=== PATIENT | female | born 2000 | race Caucasian/White ===

== ENCOUNTER 2023-03-25 08:57 | Emergency (ER) | payer OTHER ==
[2023-03-25] MEDS ORDERED: KETOROLAC TROMETHAMINE 30 MG/1 ML VIAL IVPUSH ONE (10:07)
[2023-03-25 10:30] LABS: BASO % 0.2 % (0-2.0); EOS % 2.4 % (0-4.5); HEMATOCRIT 37.5 % (32.4-45.2); HEMOGLOBIN 12.6 GM/dL (10.7-15.3); LYMPH % 31.7 % (8-40); MCH 28.1 pg (25.7-33.7); MCHC 33.6 g/dl (32.0-36.0); MEAN CELL VOLUME 83.4 fl (80-96); MEAN PLT VOLUME 7.5 fl (7.5-11.1); MONO % 10.4 % (3.8-10.2); NEUT % 55.3 % (42.8-82.8); PLATELET COUNT 382 10^3/uL (134-434); RBC 4.49 M/mm3 (3.60-5.2); RDW 12.8 % (11.6-15.6); WHITE BLOOD COUNT 7.5 K/mm3 (4.0-10.0)
[2023-03-25 10:33] LABS: URINE APPEARANCE CLEAR; URINE BILIRUBIN NEGATIVE (NEGATIVE); URINE COLOR YELLOW; URINE GLUCOSE (UA) NEGATIVE (NEGATIVE); URINE KETONE NEGATIVE (NEGATIVE); URINE LEUK ESTERASE NEGATIVE (NEGATIVE); URINE NITRITE NEGATIVE (NEGATIVE); URINE PROTEIN NEGATIVE (NEGATIVE); URINE UROBILINOGEN 0.2 mg/dL (0.2-1.0)
[2023-03-25 10:36] LABS: HCG,QUALITATIVE URINE Negative
[2023-03-25 10:59] LABS: POTASSIUM 4.3 mmol/L (3.5-5.1)
[2023-03-25 11:01] LABS: BLOOD UREA NITROGEN 12.6 mg/dL (7-18); CALCIUM 9.3 mg/dL (8.5-10.1)
[2023-03-25 11:05] LABS: CREATININE 0.5 mg/dL (0.55-1.3)
[2023-03-25 11:06] LABS: BILIRUBIN,TOTAL 0.6 mg/dL (0.2-1)
[2023-03-25 14:09] VITALS: BP 109/67; PULSE 80; RESP 18; TEMP 98.6
== END 2023-03-25 14:41 | disposition home or self-care (01) ==
LOC: JER 08:57
DX: R10.31 Right lower quadrant pain (principal); K59.00 Constipation, unspecified; K50.00 Crohn's disease of small intestine without complications
CPT/HCPCS: 36415; 74177-TC; 80053; 81003; 84703; 85025; 87086; 99285-25; Q9967

== ENCOUNTER 2023-07-22 10:57 | Day surgery (SDC) | payer OTHER ==
[2023-07-22 14:11] VITALS: BP 120/72; PULSE 90; RESP 19; TEMP 98.6
== END 2023-07-22 14:00 | disposition short-term general hospital (02) ==
LOC: FASU-ENDO 10:57
PROVIDERS: ATTEND Internal Medicine Gastroenterology
PROC: 0DJD8ZZ Inspection of Lower Intestinal Tract, Via Natural or Artificial Opening Endoscopic (ICD-10-PCS; principal; 2023-07-22 13:15)
DX: K92.1 Melena (principal); K64.0 First degree hemorrhoids
CPT/HCPCS: 81025

== ENCOUNTER 2023-07-22 14:22 | Observation (INO) | payer OTHER ==
[2023-07-22] MEDS ORDERED: PANTOPRAZOLE SODIUM 40 MG VIAL ONE (15:12)
[2023-07-22 15:21] LABS: INR 1.36 (0.83-1.09); PROTHROMBIN TIME (PATIENT) 15.7 SEC (9.7-13.0)
[2023-07-22 15:24] LABS: ACTIVATED PTT 34.9 SECONDS (25.2-36.5)
[2023-07-22 15:33] LABS: HEMATOCRIT 30.2 % (32.4-45.2); HEMOGLOBIN 10.3 G/dL (10.7-15.3); MCH 28.7 pg (25.7-33.7); MEAN CELL VOLUME 84.5 fl (80-96); MEAN PLT VOLUME 8.5 fl (7.5-11.1); PLATELET COUNT 343.1 10^3/uL (134-434); RBC 3.57 10^6/uL (3.60-5.2); RDW 14.3 % (11.6-15.6); WHITE BLOOD COUNT 7.2 10^3/uL (4.0-10.8)
[2023-07-22 15:41] LABS: ALBUMIN 4.2 g/dl (3.4-5.0); BILIRUBIN,TOTAL 0.7 mg/dl (0.2-1); CALCIUM 9.4 mg/dl (8.5-10.1); CREATININE 0.4 mg/dl (0.6-1.3); POTASSIUM 3.8 mmol/L (3.5-5.1)
[2023-07-22 15:43] LABS: PLATELET ESTIMATE ADEQUATE
[2023-07-22] MEDS: PANTOPRAZOLE SODIUM 40 MG VIAL IVPUSH ONE (15:50)
[2023-07-22 19:02] LABS: HEMATOCRIT 28.4 % (32.4-45.2); HEMOGLOBIN 9.9 G/dL (10.7-15.3); MCH 29.7 pg (25.7-33.7); MCHC 34.7 g/dl (32.0-36.0); MEAN CELL VOLUME 85.4 fl (80-96); MEAN PLT VOLUME 8.5 fl (7.5-11.1); PLATELET COUNT 309.5 10^3/uL (134-434); RBC 3.32 10^6/uL (3.60-5.2); RDW 14.4 % (11.6-15.6)
[2023-07-22 21:56] VITALS: BMI 18.1
[2023-07-23 08:36] VITALS: RESP 14; TEMP 97.5
[2023-07-23 08:53] LABS: CALCIUM 9.1 mg/dl (8.5-10.1); CREATININE 0.4 mg/dl (0.6-1.3); POTASSIUM 3.7 mmol/L (3.5-5.1)
[2023-07-23 10:07] LABS: BASO % 0.3 % (0-2.0); EOS % 1.1 % (0-4.5); HEMATOCRIT 28.7 % (32.4-45.2); HEMOGLOBIN 9.6 GM/dL (10.7-15.3); LYMPH % 17.2 % (8-40); MCH 27.8 pg (25.7-33.7); MCHC 33.3 g/dl (32.0-36.0); MEAN CELL VOLUME 83.6 fl (80-96); MEAN PLT VOLUME 8.7 fl (7.5-11.1); MONO % 12.4 % (3.8-10.2); PLATELET COUNT 346 10^3/uL (134-434); RBC 3.44 M/mm3 (3.60-5.2)
[2023-07-23 13:28] VITALS: BP 106/63; PULSE 97
== END 2023-07-23 15:18 | disposition home or self-care (01) ==
LOC: FER 14:22 → FM/S 21:05
PROVIDERS: ADMIT Internal Medicine; ATTEND Nurse Practitioner Family
PROC: 3E033GC Introduction of Other Therapeutic Substance into Peripheral Vein, Percutaneous Approach (ICD-10-PCS; principal; 2023-07-22)
DX: K91.840 Postprocedural hemorrhage of a digestive system organ or structure following a digestive system procedure (principal); K92.1 Melena; K59.09 Other constipation; K22.5 Diverticulum of esophagus, acquired; K64.9 Unspecified hemorrhoids; N39.9 Disorder of urinary system, unspecified
CPT/HCPCS: 36415; 74174-TC; 80048; 80053; 85025; 85027; 85610; 85730; 86850; 86900; 86901; 96374; 99285-25; G0378

== ENCOUNTER 2023-08-19 12:21 | Day surgery (SDC) | payer OTHER ==
[2023-08-15 15:55] VITALS: BMI 17.9
[2023-08-19 13:51] VITALS: TEMP 97.5
[2023-08-19 13:53] VITALS: BP 118/72; PULSE 68; RESP 18
== END 2023-08-19 14:15 | disposition home or self-care (01) ==
LOC: FASU-ENDO 12:21
PROVIDERS: ATTEND Internal Medicine Gastroenterology
PROC: 0DB68ZX Excision of Stomach, Via Natural or Artificial Opening Endoscopic, Diagnostic (ICD-10-PCS; 2023-08-19)
PROC: 0DB98ZX Excision of Duodenum, Via Natural or Artificial Opening Endoscopic, Diagnostic (ICD-10-PCS; principal; 2023-08-19 13:28)
DX: K29.50 Unspecified chronic gastritis without bleeding (principal); B96.81 Helicobacter pylori [H. pylori] as the cause of diseases classified elsewhere
CPT/HCPCS: 81025; 88305-TC; 88342-TC

== ENCOUNTER 2025-03-24 06:09 | Emergency (ER) | payer OTHER ==
[2025-03-24 06:15] VITALS: BP 124/75; PULSE 85; RESP 18; TEMP 98; BMI 19.1
[2025-03-24 08:54] LABS: MCHC 32.2 g/dl (32.2-35.5); MEAN CELL VOLUME 85.7 fl (79.4-94.8); MEAN PLT VOLUME 10.0 fl (9.4-12.3); RDW 13.0 % (12.1-16.5)
[2025-03-24 09:10] LABS: GLUCOSE,RANDOM 93.0 mg/dL (74-106); TOT PROT 7.0 g/dl (6.4-8.2)
[2025-03-24 09:12] LABS: CO2 25.0 mmol/L (21-32)
[2025-03-24 09:13] LABS: ALK PHOS 82.0 U/L (40-150)
[2025-03-24 09:16] LABS: CREATININE 0.48 mg/dL (0.55-1.3); SGOT/AST 37.0 U/L (5-34); SGPT/ALT 20.0 U/L (0-55)
[2025-03-24 09:37] LABS: HCV DIAGNOSTIC IN-HOUSE W/RFLX NON-REACTIVE (NONREACTIVE)
[2025-03-24 09:38] LABS: HIV INTERPRETATION NEGATIVE (NEGATIVE)
== END 2025-03-24 10:37 | disposition home or self-care (01) ==
LOC: JER 06:09
DX: R00.2 Palpitations (principal)
CPT/HCPCS: 36415; 71045-TC-FY; 80053; 84443; 84484; 84703; 85027; 85379; 86803; 87389; 93005; 93010; 99285-25